=== PATIENT | female | born 1975 ===

== ENCOUNTER 2022-09-10 11:44 | Emergency (ER) | payer MEDICAID ==
[~2022-09-10] VITALS: Ht 177.8 cm; Wt 97.0 kg
[2022-09-10 11:48] VITALS: BP 124/60
== END 2022-09-10 15:09 | disposition left against medical advice (07) ==
LOC: ER 11:46
DX: R21 Rash and other nonspecific skin eruption (principal); Z53.21 Procedure and treatment not carried out due to patient leaving prior to being seen by health care provider